=== PATIENT | female | born 1955 | race Caucasian/White ===

== ENCOUNTER 2019-09-20 14:44 | Emergency (ER) | payer BC ==
[~2019-09-20] VITALS: Ht 160 cm; Wt 78.9 kg
[2019-09-20] MEDS ORDERED: NITROGLYCERIN SUBLINGUAL 0.4 MG BOTTLE OF 25. SL PRN (15:00)
[2019-09-20] MEDS ORDERED: ASPIRIN CHEWABLE 81 MG TABLET. PO ONE (15:00)
--- NOTE | 2019-09-20 15:26 | PHYS DOC ---
Adult General Chief Complaint Chief Complaint: CHEST PAIN HPI HPI 64-year-old female presents to the emergency department with complaints of epigastric, chest pain. Patient states she was shopping, had eaten lunch at [employer] and subsequently developed what she thought was chest pain. Describes a constant sensation no significant radiation. She does describe however sometimes it would move to her back. She denies any shortness of breath, vomiting, diarrhea. She does describe nausea. Nothing makes her symptoms worse, nothing makes her symptoms better. Pain at this time. Review of Systems Review of Systems Constitutional: Denies fever or chills [] Eyes: Denies change in visual acuity, redness, or eye pain [] HENT: Denies nasal congestion or sore throat [] Respiratory: Denies cough or shortness of breath [] Cardiovascular: No additional information not addressed in HPI [] GI: Denies abdominal pain, + nausea, no vomiting, bloody stools or diarrhea [] Musculoskeletal: Denies back pain or joint pain [] Integument: Denies rash or skin lesions [] Neurologic: Denies headache, focal weakness or sensory changes [] All other systems were reviewed and found to be within normal limits, except as documented in this note. Current Medications Current Medications Current Medications Medications (Trade) Dose Ordered Sig/Stevenson Start Time Stop Time Status Last Admin Dose Admin Aspirin (Children'S Aspirin) 324 mg 1X ONCE 09/20/19 15:00 09/20/19 15:04 DC 09/20/19 15:31 324 MG Magnesium Sulfate 50 ml @ 25 mls/hr 1X ONCE 09/20/19 16:45 09/20/19 18:44 09/20/19 17:57 25 MLS/HR Nitroglycerin (Nitrostat) 0.4 mg PRN Q5MIN PRN 09/20/19 15:00 09/21/19 14:59 Allergies Allergies Allergies Coded Allergies Type Severity Reaction Last Updated Verified Penicillins Allergy Unknown 09/20/19 Yes Physical Exam Physical Exam Constitutional: Well developed, well nourished, no acute distress, non-toxic appearance. [] HENT: Normocephalic, atraumatic, bilateral external ears normal, oropharynx moist, no oral exudates, nose normal. [] Eyes: PERRLA, EOMI, conjunctiva normal, no discharge. [] Neck: Normal range of motion, no tenderness, supple, no stridor. [] Cardiovascular:Heart rate regular rhythm, no murmur [] Lungs & Thorax: Bilateral breath sounds clear to auscultation [] Abdomen: Bowel sounds normal, soft, no tenderness, no masses, no pulsatile mas ses. [] Skin: Warm, dry, no erythema, no rash. [] Back: No tenderness, no CVA tenderness. [] Extremities: No tenderness, no cyanosis, no clubbing, ROM intact, no edema. [] Neurologic: Alert and oriented X 3, normal motor function, normal sensory function, no focal deficits noted. [] Psychologic: Affect normal, judgement normal, mood normal. [] Current Patient Data Vital Signs Vital Signs Date Time Temp Pulse Resp B/P (MAP) Pulse Ox O2 Delivery O2 Flow Rate FiO2 09/20/19 15:26 98.4 71 16 161/84 (109) 98 Room Air 98.4 Lab Values Laboratory Tests Test 09/20/19 15:13 09/20/19 16:00 White Blood Count 6.0 x10^3/uL (4.0-11.0) Red Blood Count 4.65 x10^6/uL (3.50-5.40) Hemoglobin 14.5 g/dL (12.0-15.5) Hematocrit 41.5 % (36.0-47.0) Mean Corpuscular Volume 89 fL (79-100) Mean Corpuscular Hemoglobin 31 pg (25-35) Mean Corpuscular Hemoglobin Concent 35 g/dL (31-37) Red Cell Distribution Width 13.2 % (11.5-14.5) Platelet Count 289 x10^3/uL (140-400) Neutrophils (%) (Auto) 59 % (31-73) Lymphocytes (%) (Auto) 30 % (24-48) Monocytes (%) (Auto) 9 % (0-9) Eosinophils (%) (Auto) 1 % (0-3) Basophils (%) (Auto) 1 % (0-3) Neutrophils # (Auto) 3.5 x10^3/uL (1.8-7.7) Lymphocytes # (Auto) 1.8 x10^3/uL (1.0-4.8) Monocytes # (Auto) 0.6 x10^3/uL (0.0-1.1) Eosinophils # (Auto) 0.1 x10^3/uL (0.0-0.7) Basophils # (Auto) 0.0 x10^3/uL (0.0-0.2) Sodium Level 136 mmol/L (136-145) Potassium Level 3.8 mmol/L (3.5-5.1) Chloride Level 96 mmol/L (98-107) L Carbon Dioxide Level 30 mmol/L (21-32) Anion Gap 10 (6-14) Blood Urea Nitrogen 7 mg/dL (7-20) Creatinine 0.7 mg/dL (0.6-1.0) Estimated GFR (Cockcroft-Gault) 84.5 BUN/Creatinine Ratio 10 (6-20) Glucose Level 160 mg/dL (70-99) H Calcium Level 8.4 mg/dL (8.5-10.1) L Magnesium Level 1.7 mg/dL (1.8-2.4) L Total Bilirubin 0.3 mg/dL (0.2-1.0) Aspartate Amino Transferase (AST) 29 U/L (15-37) Alanine Aminotransferase (ALT) 25 U/L (14-59) Alkaline Phosphatase 64 U/L (46-116) Troponin I Quantitative < 0.017 ng/mL (0.000-0.055) AS-Yjd-R-Type Natriuretic Peptide 134 pg/mL (0-124) H Total Protein 7.3 g/dL (6.4-8.2) Albumin 3.8 g/dL (3.4-5.0) Albumin/Globulin Ratio 1.1 (1.0-1.7) Lipase 201 U/L (73-393) Urine Collection Type Unknown Urine Color Yellow Urine Clarity Clear Urine pH 7.0 Urine Specific [place] 1.010 Urine Protein Negative mg/dL (NEG-TRACE) Urine Glucose (UA) Negative mg/dL (NEG) Urine Ketones (Stick) Negative mg/dL (NEG) Urine Blood Negative (NEG) Urine Nitrite Negative (NEG) Urine Bilirubin Negative (NEG) Urine Urobilinogen Dipstick 0.2 mg/dL (0.2 mg/dL) Urine Leukocyte Esterase Trace (NEG) Urine RBC Occ /HPF (0-2) Urine WBC 1-4 /HPF (0-4) Urine Squamous Epithelial Cells Few /LPF Urine Renal Epithelial Cells Occ /LPF Urine Bacteria 0 /HPF (0-FEW) Laboratory Tests 09/20/19 15:13 Laboratory Tests 09/20/19 15:13 EKG EKG [] Radiology/Procedures Radiology/Procedures [facility] [address] [place] [address] IMAGING REPORT Signed PATIENT: JOSE E FELIX ACCOUNT: [id number] : 1955 LOCATION: ER AGE: 64 SEX: F EXAM STATUS: REG ER ORD. PHYSICIAN: PASQUALE PIÑA MD REASON: epigastric pain, gall bladder present PROCEDURE: ABDOMEN LTD Exam: Ultrasound abdomen limited Indication: Epigastric pain Technique: Real-time grayscale and color Doppler images of the right upper quadrant were obtained by the department gliding pilot instructor. Comparisons: None FINDINGS: Liver has a normal sonographic appearance. Normal hepatopedal flow noted within the portal vein. Sludge versus nonshadowing stones noted within the gallbladder. Gallbladder is distended and appears thin-walled. No pericholecystic fluid or inflammatory changes. Common bile duct is nondilated measuring 2 mm in diameter. Right kidney measures 10.1 cm in long axis. Pancreas is not well visualized. Visualized portions of the IVC are unremarkable. IMPRESSION: 1. Cholelithiasis without secondary signs for acute cholecystitis. 2. Normal sonographic appearance of the liver. 3. No right-sided hydronephrosis. Electronically signed by: Niko Barnett MD (09/20/2019 5:19 PM) [facility] DICTATED and SIGNED BY: NIKO BARNETT MD DATE: 09/20/19 1719 [] [facility] [address] [place], [place] [id number] IMAGING REPORT Signed PATIENT: JOSE E FELIX ACCOUNT: [id number] : 1955 LOCATION: ER AGE: 64 SEX: F EXAM STATUS: REG ER ORD. PHYSICIAN: PASQUALE PIÑA MD REASON: Chest Pain blood work 3:00 PROCEDURE: PORTABLE CHEST 1V Study: PORTABLE CHEST 1V Indication: Chest pain. Comparison: None. Findings: Unremarkable lungs, cardiomediastinal silhouette and arjun. A few small granulomas appear to be present. Grossly intact osseous structures. No free air seen under the diaphragm. Impression: No acute radiographic abnormality of the chest. Electronically signed by: MARU HARRIS MD (09/20/2019 3:38 PM) [facility] DICTATED and SIGNED BY: MARU HARRIS MD DATE: 09/20/19 1538 Course & Med Decision Making Course & Med Decision Making Pertinent Labs and Imaging studies reviewed. (See chart for details) []64-year-old female presents to the emergency department with complaints of epigastric, chest pain. Patient states she was shopping, had eaten lunch at [employer] and subsequently developed what she thought was chest pain. Describes a constant sensation no significant radiation. She does describe however sometimes it would move to her back. She denies any shortness of breath, vomiting, diarrhea. She does describe nausea. Nothing makes her symptoms worse, nothing makes her symptoms better. Pain at this time. Dragon Disclaimer Dragon Disclaimer This electronic medical record was generated, in whole or in part, using a voice recognition dictation system. The HEART Score for CP Pts HEART Score for Chest Pain: HEART Score for Chest Pain Response (Comments) Value History Slighlty/Non-Suspicious 0 ECG Normal 0 Age >45 - < 65 1 Risk Factors 1 or 2 Risk Factors 1 Troponin < Normal Limit 0 Total 2 Risk Factors: Risk Factors: DM, Current or recent (<one month) smoker, HTN, HLP, family history of CAD, obesity. Risk Scores: Score 0 - 3: 2.5% MACE over next 6 weeks - Discharge Home Score 4 - 6: 20.3% MACE over next 6 weeks - Admit for Clinical Observation Score 7 - 10: 72.7% MACE over next 6 weeks - Early Invasive Strategies Departure Departure Impression: Primary Impression: Biliary colic Disposition: HOME, SELF-CARE Condition: IMPROVED Patient Instructions: Biliary Colic Additional Instructions: Recommend follow up with PCP 3 - 5 days Return to the ER with worsening symptoms, intractable pain, fever, altered mental status Tylenol/Motrin as needed for pain Cardiac enzymes x 2 sets negative US ordered -evidence of cholelithiasis, no acute cholecystitis PASQUALE PIÑA MD 29, 2019 15:26
[2019-09-20 15:28] LABS: BASO % 1 % (0-3); EOS # 0.1 x10^3/uL (0.0-0.7); EOS % 1 % (0-3); HEMATOCRIT 41.5 % (36.0-47.0); HEMOGLOBIN 14.5 g/dL (12.0-15.5); LYMPH # 1.8 x10^3/uL (1.0-4.8); LYMPH % 30 % (24-48); MEAN CORPUSCULAR HEMOGLOBIN 31 pg (25-35); MEAN CORPUSCULAR HGB CONC 35 g/dL (31-37); MEAN CORPUSCULAR VOLUME 89 fL (79-100); MONO # 0.6 x10^3/uL (0.0-1.1); MONO % 9 % (0-9); NEUT # 3.5 x10^3/uL (1.8-7.7); NEUT % 59 % (31-73); PLATELET COUNT 289 x10^3/uL (140-400); RED BLOOD COUNT 4.65 x10^6/uL (3.50-5.40); RED CELL DISTRIBUTION WIDTH 13.2 % (11.5-14.5)
[2019-09-20 15:38] LABS: CALCIUM 8.4 mg/dL (8.5-10.1); CREATININE 0.7 mg/dL (0.6-1.0); GFR 84.5; POTASSIUM 3.8 mmol/L (3.5-5.1)
--- NOTE | 2019-09-20 15:41 | RAD ---
Study: PORTABLE CHEST 1V Indication: Chest pain. Comparison: None. Findings: Unremarkable lungs, cardiomediastinal silhouette and arjun. A few small granulomas appear to be present. Grossly intact osseous structures. No free air seen under the diaphragm. Impression: No acute radiographic abnormality of the chest. Electronically signed by: MARU HARRIS MD (09/20/2019 3:38 PM) [facility]
[2019-09-20 15:44] LABS: ALBUMIN 3.8 g/dL (3.4-5.0); ALBUMIN/GLOBULIN RATIO 1.1 (1.0-1.7); MAGNESIUM 1.7 mg/dL (1.8-2.4); TOTAL BILIRUBIN 0.3 mg/dL (0.2-1.0); TOTAL PROTEIN 7.3 g/dL (6.4-8.2)
[2019-09-20 16:32] LABS: BILIRUBIN,URINE NEGATIVE (NEG); CLARITY,URINE CLEAR; COLOR,URINE YELLOW; NITRITE,URINE NEGATIVE (NEG); PROTEIN,URINE NEGATIVE (NEG-TRACE); UROBILINOGEN,URINE 0.2 mg/dL (0.2 mg/dL)
[2019-09-20] MEDS ORDERED: MAGNESIUM SULFATE 2GM 50 ML IV ONE (16:45)
[2019-09-20 16:47] LABS: RBC,URINE OCC /HPF (0-2); SQUAMOUS EPITHELIAL CELL,UR FEW /LPF
[2019-09-20 16:48] LABS: BACTERIA,URINE 0 /HPF (0-FEW)
--- NOTE | 2019-09-20 17:22 | RAD ---
Exam: Ultrasound abdomen limited Indication: Epigastric pain Technique: Real-time grayscale and color Doppler images of the right upper quadrant were obtained by the department mascara molder. Comparisons: None FINDINGS: Liver has a normal sonographic appearance. Normal hepatopedal flow noted within the portal vein. Sludge versus nonshadowing stones noted within the gallbladder. Gallbladder is distended and appears thin-walled. No pericholecystic fluid or inflammatory changes. Common bile duct is nondilated measuring 2 mm in diameter. Right kidney measures 10.1 cm in long axis. Pancreas is not well visualized. Visualized portions of the IVC are unremarkable. IMPRESSION: 1. Cholelithiasis without secondary signs for acute cholecystitis. 2. Normal sonographic appearance of the liver. 3. No right-sided hydronephrosis. Electronically signed by: Niko Chowdary MD (09/20/2019 5:19 PM) [facility]
[2019-09-20 18:30] VITALS: BP 142/68
--- NOTE | 2019-09-21 09:54 | EKG ---
[facility] [address] [place] [address] Test Date: 2019-09-20 Test Time: 14:54:28 Pat Name: JOSE E FELIX Department: Room: Gender: F [employer] Clerk: : 1955 Requested By: PASQUALE PIÑA Order Number: [id number] Reading MD: Measurements Intervals [place] Rate: 70 P: 31 SD: 170 QRS: -3 QRSD: 82 T: 72 QT: 394 QTc: 428 Interpretive Statements SINUS RHYTHM ATRIAL PREMATURE COMPLEX(ES) LEFTWARD AXIS ST & T ABNORMALITY, CONSIDER HIGH LATERAL ISCHEMIA OR LEFT VENTRICULAR STRAIN ABNORMAL ECG No previous ECG available for comparison
== END 2019-09-20 18:51 | disposition home or self-care (01) ==
LOC: ER 14:44
DX: K80.50 Calculus of bile duct without cholangitis or cholecystitis without obstruction (principal); Z88.0 Allergy status to penicillin; Z79.82 Long term (current) use of aspirin
CPT/HCPCS: 36415; 71045; 76705; 80053; 81001; 83690; 83735; 83880; 84484; 85025; 87086; 93005; 96365; 99285; J3475

== ENCOUNTER → 2021-04-09 | Outpatient (CLI) | payer MEDICARE ==
--- NOTE | 2021-04-09 09:34 | KCIC ---
PQRS Compliance Statement: One or more of the following individualized dose reduction techniques were utilized for this examinat ion: 1. Automated exposure control 2. Adjustment of the mA and/or kV according to patient size 3. Use of iterative reconstruction technique CT LOW DOSE LUNG SCREEN 04/09/2021 9:00 AM Indication: Smoker for 25 years. Quit 23 years ago. COMPARISON: None available. TECHNIQUE: Multiple axial CT images of the chest were obtained without intravenous contrast utilizing low-dose technique. Coronal and sagittal reformats are provided. FINDINGS: There is a 4.5 mm ovoid nodule in the right middle lobe (series 3, image 206 6). There is a 2 mm subp leural solid noncalcified pulmonary nodule in the right middle lobe laterally (series 3, image 200). There is a 5 mm solid noncalcified pulmonary nodule in the subpleural medial right lower lobe (series 3, image 297). There is a 6 cm solid noncalcified pulmonary nodule along the right diaphragm (series 3, image 275). No pleural effusions, pulmonary vascular congestion or pneumothorax. Inferior left th yroid nodule measures 1.2 cm, although evaluation is limited by low-dose technique. No pathologically enlarged thoracic lymph nodes. Heart size is within normal limits. Thoracic aorta is normal in cours e and caliber. Calcified mediastinal and left hilar lymph nodes suggest sequela prior granulomatous e xposure. No significant pericardial effusion. Adrenal glands are normal in appearance. No suspicious findings involving the visualized portions of the upper abdomen. No suspicious osseous abnormality is identified. IMPRESSION: 6 mm subpleural solid noncalcified pulmonary nodule at the right hemidiaphragm. Lung RADS category 3, probably benign. Recommend low-dose chest CT in 6 months. Additional solid noncalcified pulmonary nodules measure up to 5 mm in the subpleural medial right low er lobe. Attention on follow-up exams is recommended. 1.2 cm left thyroid nodule. Nonemergent thyroid ultrasound could be of benefit for further evaluation as findings are limited by low-dose technique on the current examination. Electronically signed by: Yovana Saunders MD (04/09/2021 9:32 AM) [id number]
--- NOTE | 2021-04-09 17:04 | KCIC ---
BILATERAL SCREENING MAMMOGRAM, 3-D History: Routine screening. Comparison: None. Interpreted as new baseline examination. Technique: MLO and CC digital tomosynthesis (3D) images obtained. Radiologist reviewed these images on dedicated workstation. Findings: Breast Tissue Density B : There are scattered areas of fibroglandular density. There are no dominant masses, suspicious microcalcifications or architectural distortion. IMPRESSION: No mammographic evidence of malignancy. Recommend routine screening. BI-RADS category 1: Negative. The images were reviewed with computer-aided detection. Patient information is entered into reminder system with a target due date for the next screening [facility]. Mammography is the most sensitive method for finding small breast cancers, but it does not detect the m all and is not a substitute for careful clinical examination. A negative mammogram does not negate a clinically suspicious finding and should not result in delay in biopsying a clinically suspicious a bnormality. "Our facility is accredited by the [employer] Mammography Program." Electronically signed by: Gus Adair MD (04/09/2021 5:02 PM) [facility]
== END ==
LOC: KCIC CT 08:47
PROVIDERS: ATTEND Family Medicine
DX: Z12.31 Encounter for screening mammogram for malignant neoplasm of breast (principal); R91.1 Solitary pulmonary nodule; E04.1 Nontoxic single thyroid nodule; F17.210 Nicotine dependence, cigarettes, uncomplicated
CPT/HCPCS: 71271; 77063; 77067

== ENCOUNTER → 2021-05-05 | Outpatient (CLI) | payer MEDICARE ==
--- NOTE | 2021-05-05 14:36 | KCIC ---
EXAM: Thyroid sonogram. HISTORY: Thyroid nodule. Right thyroidectomy. TECHNIQUE: Sonographic imaging of the thyroid was performed. COMPARISON: None. FINDINGS: The right thyroid lobe is surgically absent. No residual thyroid parenchymal or lesion with in the right thyroid bed is seen. The left thyroid lobe measures 4.4 x 2.1 x 1.7 cm. The and left asp ect of the thyroid isthmus measures 2 mm. There is a colloid cyst within the superior left thyroid lobe measuring 1.2 x 1.2 x 0.8 cm. There is a heterogeneous solid hypoechoic nodule with suspected small cystic component within the inferior lef t thyroid lobe measuring 1.8 x 1.6 x 1.3 cm. There are few tiny left thyroid colloid cysts and nodule s measuring up to 3 mm. These are likely benign based on size. The left thyroid lobe is diffusely het erogeneous. IMPRESSION: 1. Heterogeneous hypoechoic nodule with small cystic component within the inferior left thyroid lobe measuring 1.8 cm. TI-RADS Category 4: Sonographic guided fine-needle aspiration is recommended if not previously performed. 2. 1.2 cm benign left colloid cyst and several smaller colloid cysts and suspected benign hypoechoic nodules measuring up to 3 mm. Electronically signed by: Naomi Denton MD (05/05/2021 2:33 PM) [id number]
== END ==
LOC: KCIC US 12:43
PROVIDERS: ATTEND Family Medicine
DX: E04.2 Nontoxic multinodular goiter (principal)
CPT/HCPCS: 76536

== ENCOUNTER → 2021-05-25 | Outpatient (CLI) | payer MEDICARE ==
[~2021-05-25] MED LIST: LIDOCAINE 1% Multi-Dose 20 ML VIAL. INJ ONE
--- NOTE | 2021-05-25 10:21 | RAD ---
EXAM: Sonographic guided left thyroid fine-needle aspiration. HISTORY: Left thyroid nodule. TECHNIQUE: The risks of the procedure discussed with the patient and written and verbal consent was o btained. A timeout was performed. Sonographic imaging of the left thyroid lobe was performed and the dominant lesion of concern within the inferior thyroid lobe measuring 1.8 cm was identified. The skin over this location was sterilely prepped, draped and infiltrated with 1 percent lidocaine. Multiple passes were obtained through the nodule concern with 25-gauge needles using sonographic guidance. The aspirate was deemed suitable for interpretation and submitted to the department of pathology for sally lysis. A sterile bandage placed. The patient tolerated the procedure without difficulty. IMPRESSION: Sonographic guided fine-needle aspiration of a 1.8 cm dominant left thyroid nodule. An ad dendum to this report will be submitted when pathology results are available. Electronically signed by: Naomi Denton MD (05/25/2021 10:18 AM) [id number]
--- NOTE | 2021-05-26 17:23 | PATHOLOGY ---
Note [facility] Accession Number: [id number] TESTS RESULT FLAG UNITS REF RANGE LAB Clinician Provided Cytology Information No. of containers..01 Other (Miscellaneous) Source: LEFT INF THY DIAGNOSIS: LEFT INF THY NEGATIVE FOR MALIGNANT CELLS. B[place] CATEGORY II. SPECIMEN CONSISTS OF BENIGN FOLLICULAR CELLS, HEMOSIDERIN-LADEN MACROPHAGES, COLLOID, AND BLOOD. THIS PATTERN IS CONSISTENT WITH A BENIGN FOLLICULAR NODULE. Pathologist ICD10: 02 E04.1 Signed out by: 02 Santy Segundo MD, Pathologist NPI- [id number] Performed by: Jemal Forde, Manager Mail ([facility]) Gross description: 20ML, CLEAR PINK, 2F 1A 2 H /LCS 05/26/2021 0357 Local FLAG LEGEND: L-Low Normal,H-High Normal,LL-Alert Low,HH-Alert High <-Panic Low,>-Panic High,A-Abnormal,AA-Critical Abnormal Performed at: [facility] [place] [address] [place] [address] [address] [place] [address] Joe Merlos MD, [facility] [address] Santy Segundo MD, Specimen Comment: A courtesy copy of this report has been sent to [phone], [phone] Specimen Comment: [id number] Specimen Comment: Report sent to DR. KEMP / HECTOR Performed at: [address], [place], [place] [id number] MD Joe Merlos MD Phone: [phone]
== END | disposition home or self-care (01) ==
LOC: US 09:44
PROVIDERS: ATTEND Family Medicine
DX: E04.1 Nontoxic single thyroid nodule (principal); Z88.0 Allergy status to penicillin; Z72.89 Other problems related to lifestyle
CPT/HCPCS: 10005; 88173; 88305